=== PATIENT | male | born 1960 | race Caucasian/White ===

== ENCOUNTER 2022-08-06 10:58 | Emergency (ER) | payer OTHER ==
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
--- NOTE | 2022-08-06 13:01 | XR ---
EXAMINATION TYPE: XR shoulder complete LT DATE OF EXAM: 08/06/2022 COMPARISON: NONE HISTORY: Pain, follow TECHNIQUE: Shoulder examined in 3 projections. FINDINGS: The humeral head articulates with the glenoid. There is a comminuted fracture of the distal clavicle. The acromioclavicular junction appears intact. IMPRESSION: 1. Distal left clavicular fracture.
[2022-08-06] MEDS ORDERED: traMADol 50 MG STARTER PACK 3 TAB BTL PO STA (13:23)
[2022-08-06] MEDS ORDERED: KETOROLAC 15 MG/ML 1 ML VIAL IM STA (13:23)
[2022-08-06 13:51] VITALS: BP 149/76; PULSE 59; RESP 17; TEMP 98.7
== END 2022-08-06 13:52 | disposition home or self-care (01) ==
LOC: EC 10:58
DX: S42.032A Displaced fracture of lateral end of left clavicle, initial encounter for closed fracture (principal); F17.200 Nicotine dependence, unspecified, uncomplicated; V89.2XXA Person injured in unspecified motor-vehicle accident, traffic, initial encounter
CPT/HCPCS: 73030; 99283; 96372; J1885